=== PATIENT | female | born 1980 | race Caucasian/White ===

== ENCOUNTER → 2022-12-13 | Outpatient (REF) | payer OTHER ==
[~2022-12-13] MED LIST: ACHYD1T PO; DCS100C PO; FLUO20CA25 PO; IBP800T PO; OXYC-12 PO; PREN1TAB19 PO
--- NOTE | 2022-12-13 17:46 | Diagnostic Imaging Report ---
INDICATION: Positive TB skin test. No prior examinations are available for comparison. FINDINGS: The heart size, mediastinal configuration, and pulmonary vascularity are within normal limits. There is no pleural effusion, pneumothorax, or pneumonia. The osseous structures are unremarkable. IMPRESSION: No acute cardiopulmonary abnormality. Specifically, there is no radiographic evidence of tuberculosis. Dictated by: Dictated on workstation # [id number]
== END ==
LOC: RAD 15:22
PROVIDERS: ATTEND Family Medicine
DX: R76.11 Nonspecific reaction to tuberculin skin test without active tuberculosis (principal)
CPT/HCPCS: 71045